=== PATIENT | female | born 1970 | race Caucasian/White ===

== ENCOUNTER 2019-01-16 03:22 | Emergency (ER) | payer OTHER ==
[~2019-01-16] VITALS: Ht 167.6 cm; Wt 100.0 kg
[2019-01-16] MEDS ORDERED: KETOROLAC 30MG/ML VIAL IM ONE (04:45)
[2019-01-16 05:50] VITALS: BP 155/100
== END 2019-01-16 06:04 | disposition home or self-care (01) ==
LOC: ER 03:22
DX: M25.571 Pain in right ankle and joints of right foot (principal); M79.671 Pain in right foot; E11.9 Type 2 diabetes mellitus without complications; I25.10 Atherosclerotic heart disease of native coronary artery without angina pectoris
CPT/HCPCS: 73610; 73630; 96372; 99283; J1885